=== PATIENT | female | born 1930 | race Caucasian/White ===

== ENCOUNTER 2016-08-23 12:47 | Emergency (ER) | payer OTHER ==
[2016-08-23 13:07] VITALS: TEMP 98.2; BMI 25.4
[2016-08-23] MEDS ORDERED: OXYCODONE/APAP 5/325MG COMBO TABLET PO ONE ×2 (13:45→18:47)
[2016-08-23] MEDS ORDERED: OXYCODONE/APAP 5/325MG COMBO TABLET ONE ×2 (13:58→18:47)
[2016-08-23 14:29] LABS: BASOPHIL 0.7 % (0-2.0); EOSINOPHIL 2.8 % (0-4.5); MCH 30.4 pg (25.7-33.7); MEAN CELL VOLUME 92.1 fl (80-96); MEAN PLT VOLUME 8.5 fl (7.5-11.1); NEUTROPHILS 71.6 % (42.8-82.8); PLATELET COUNT 295 K/MM3 (134-434); RDW 13.5 % (11.6-15.6); WHITE BLOOD COUNT 8.4 K/mm3 (4.0-10.0)
[2016-08-23 14:54] LABS: ALBUMIN 3.4 g/dl (3.4-5.0); ALK PHOS 75 U/L (45-117); ANION GAP 8 (8-16); BILIRUBIN,TOTAL 0.6 mg/dL (0.2-1.0); CALCIUM 8.7 mg/dL (8.5-10.1); CO2 27 mmol/L (21-32); CREATININE 0.7 mg/dL (0.55-1.02); GLUCOSE,RANDOM 86 mg/dL (74-106); SGPT/ALT 19 U/L (12-78); TOT PROT 6.3 g/dl (6.4-8.2)
[2016-08-23 14:56] LABS: SGOT/AST 23 U/L (15-37)
--- NOTE | 2016-08-23 15:10 | PDOC ---
*Physical Exam - Vital Signs Last Vital Signs Temp Pulse Resp BP Pulse Ox 98.2 F 85 18 131/73 100 08/23/16 12:54 08/23/16 12:54 08/23/16 12:54 08/23/16 12:54 08/23/16 12:54 Heart Score/ECG Review #1 ECG reviewed & interpreted by me at: 15:10 08/23/16 15:10 Twelve-lead EKG was performed and reviewed by me. There is normal sinus rhythm with a normal rate of 89bpm. The axis is normal. The intervals are normal - pr: 136ms, QRS:76ms, QTc:442ms. There are no ST or T wave abnormalities. ED Treatment Course - LABORATORY CBC & Chemistry Diagram: 08/23/16 13:52 08/23/16 13:52 - ADDITIONAL ORDERS Additional order review: Laboratory Results 08/23/16 08/23/16 13:52 13:52 INR Cancelled Sodium 143 Potassium 4.1 Chloride 108 H Carbon Dioxide 27 Anion Gap 8 BUN 9 Creatinine 0.7 Creat Clearance w eGFR > 60 Random Glucose 86 Calcium 8.7 Total Bilirubin 0.6 AST 23 ALT 19 Alkaline Phosphatase 75 Total Protein 6.3 L Albumin 3.4 08/23/16 13:52 RBC 4.54 MCV 92.1 MCHC 33.0 RDW 13.5 MPV 8.5 Neutrophils % 71.6 Lymphocytes % 17.2 Monocytes % 7.7 Eosinophils % 2.8 Basophils % 0.7 - Medications Given in the ED: ED Medications Discontinued Medications Generic Name Dose Route Start Last Admin Trade Name Freq PRN Reason Stop Dose Admin Oxycodone/Acetaminophen 1 combo 08/23/16 13:45 08/23/16 14:00 Percocet 5/325 - PO 08/23/16 13:46 1 combo ONCE ONE Administration Medical Decision Making - Medical Decision Making 08/23/16 15:10 Pt seen by Midlevel Provider under my direct supervision Pt interviewed and examined Ancillary studies reviewed I agree with plan as outlined by Midlevel Provider *DC/Admit/Observation/Transfer Diagnosis at time of Disposition: Phantom limb pain, Fall - Discharge Dispostion Disposition: HOME Condition at time of disposition: Improved - Prescriptions Prescriptions: Oxycodone HCl/Acetaminophen [Percocet 5-325 mg Tablet] 1 - 2 tab PO Q6H PRN #14 tab MDD 4 PRN Reason: Pain - Referrals Referrals: Ortiz Malin MD [Staff Physician] - Rowdy Don MD [Primary Care Provider] - - Patient Instructions Printed Discharge Instructions: How to Prevent Falls Additional Instructions: Please use Percocet as needed for discomfort. Please follow-up with referred neurologist and follow-up with Dr. Don tomorrow. Return to ED if symptoms worsen.
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
[2016-08-23 17:30] LABS: PH,URINE 7.5 (5.0-8.0); URINE APPEARANCE CLEAR; URINE BILIRUBIN NEGATIVE (NEGATIVE); URINE BLOOD NEGATIVE (NEGATIVE); URINE COLOR LT. YELLOW; URINE GLUCOSE (UA) NEGATIVE (NEGATIVE); URINE KETONE NEGATIVE (NEGATIVE); URINE LEUK ESTERASE NEGATIVE (NEGATIVE); URINE NITRITE NEGATIVE (NEGATIVE); URINE PROTEIN NEGATIVE (NEGATIVE); URINE UROBILINOGEN 0.2 E.U/dl E.U./dl (0.2-1.0)
--- NOTE | 2016-08-23 18:21 | EKG ---
Test Reason : Blood Pressure : / mmHG Vent. Rate : 089 BPM Atrial Rate : 089 BPM P-R Int : 136 ms QRS Dur : 076 ms QT Int : 364 ms P-R-T Axes : 054 010 047 degrees QTc Int : 442 ms NORMAL SINUS RHYTHM POSSIBLE LEFT ATRIAL ENLARGEMENT BORDERLINE ECG WHEN COMPARED WITH ECG OF 27-OCT-2008 17:17, NO SIGNIFICANT CHANGE WAS FOUND Confirmed by KERRI EARL MD ([id number]) on 08/23/2016 6:20:43 PM Referred By: Confirmed By:KERRI EARL MD
[2016-08-23 19:24] VITALS: BP 128/69; PULSE 71
== END 2016-08-23 18:50 | disposition home or self-care (01) ==
LOC: JER 12:47
DX: G54.6 Phantom limb syndrome with pain (principal); G25.81 Restless legs syndrome; Z89.611 Acquired absence of right leg above knee; W18.39XA Other fall on same level, initial encounter; Y93.89 Activity, other specified; Y92.010 Kitchen of single-family (private) house as the place of occurrence of the external cause
CPT/HCPCS: 36415; 70450-TC; 71010-TC; 72125-TC; 80053; 81003; 85025; 93005; 93010; 99282-25

== ENCOUNTER 2017-02-26 11:43 | Inpatient (IN) | payer OTHER ==
--- NOTE | 2017-02-26 11:52 | PDOC ---
History of Present Illness - General Chief Complaint: Irregular Heart Beat Stated Complaint: HYPOTENSIVE Time Seen by Provider: 02/26/17 11:49 Past History - Past Medical History Allergies/Adverse Reactions: Allergies Allergy/AdvReac Type Severity Reaction Status Date / Time No Known Allergies Allergy Verified 02/26/17 11:45 Home Medications: Ambulatory Orders Gabapentin [Neurontin] 300 mg PO TID 08/23/16 Losartan/Hydrochlorothiazide [Losartan-Hctz 50-12.5 mg Tab] 1 each PO DAILY 05/30 Zolpidem Tartrate [Ambien] 10 mg PO DAILY 08/23/16 Hydrocodone/Acetaminophen [Vicodin Es 7.5-300 mg Tablet] 1 each PO DAILY Oxycodone Sr [Oxycontin] 10 mg PO BID 02/26/17 HTN: Yes Other medical history: SEVERE NERVE PAIN S/P RBKA. - Psycho/Social/Smoking Cessation Hx Anxiety: No Suicidal Ideation: No Smoking History: Never smoked Have you smoked in the past 12 months: No Hx Alcohol Use: No Drug/Substance Use Hx: No Substance Use Type: None *Physical Exam - Vital Signs Last Vital Signs Temp Pulse Resp BP Pulse Ox 98.3 F 132 H 20 121/54 96 02/26/17 11:44 02/26/17 11:44 02/26/17 11:44 02/26/17 11:44 02/26/17 11:44 ED Treatment Course - LABORATORY CBC & Chemistry Diagram: 02/26/17 12:20 02/26/17 12:20 *DC/Admit/Observation/Transfer Diagnosis at time of Disposition: Pneumonia Qualifiers: Pneumonia type: due to unspecified organism Laterality: right Lung location: upper lobe of lung Qualified Code(s): J18.1 - Lobar pneumonia, unspecified organism - Discharge Dispostion Condition at time of disposition: Unchanged/Unknown Admit: Yes - Referrals Referrals: Rowdy Don MD [Primary Care Provider] - - Attestations Physician Attestion: 02/26/17 13:59 I, Dr. Hiren Avalso, attest that this document has been prepared under my direction and personally reviewed by me in its entirety. I further attest, that it accurately reflects all work, treatment, procedures and medical decision -making performed by me.
--- NOTE | 2017-02-26 11:54 | PDOC ---
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 Daughter states the patient was found in bed this morning with dried blood on the right side of her nose and cheek and a mild amount of dark, partially dried blood on the pillow. There were no signs of active bleeding and the patient was unaware that she was bleeding. Patient denies any history of bleeding diathesis, denies taking blood thiners or anti-platelet medications, denies any trauma and has been taking her blood pressure medication as prescribed. The patient just recently started taking amitriptyline for her neuropathic pain, no other recent changes to medication. Patient states that she had been unable to get out of bed in the morning because of the pain in her left hip. Patient is ambulatory at baseline, with a prosthesis, but has been having more difficulty getting out of bed due to hip pain which resolves after 30 minutes of ambulating. Patient denied fever but endorsed a mild cough for the last week. When patient presented she was afebrile, AAOx4 but tachycardic and hypotensive on the monitor and would desaturate to 87% on room air. PCP: Rowdy Don Past History - Past Medical History Allergies/Adverse Reactions: Allergies Allergy/AdvReac Type Severity Reaction Status Date / Time No Known Allergies Allergy Verified 02/26/17 11:45 Home Medications: Ambulatory Orders Gabapentin [Neurontin] 300 mg PO TID PRN 08/23/16 Losartan/Hydrochlorothiazide [Losartan-Hctz 50-12.5 mg Tab] 1 each PO DAILY 05/30 Zolpidem Tartrate [Ambien] 10 mg PO HS 08/23/16 Hydrocodone/Acetaminophen [Vicodin Es 7.5-300 mg Tablet] 1 each PO HS PRN Oxycodone Sr [Oxycontin] 10 mg PO BID PRN 02/26/17 HTN: Yes Other medical history: SEVERE NERVE PAIN S/P RBKA. - Psycho/Social/Smoking Cessation Hx Anxiety: No Suicidal Ideation: No Smoking History: Never smoked Have you smoked in the past 12 months: No Hx Alcohol Use: No Drug/Substance Use Hx: No Substance Use Type: None Review of Systems - Review of Systems Able to Perform ROS?: Yes Is the patient limited Uzbek proficient: No Constitutional: No: Chills, Fever HEENTM: Yes: Nose Bleeding, Hearing Loss (chronic) Respiratory: Yes: Cough. No: Shortness of Breath, Productive cough Cardiac (ROS): No: Chest Pain, Palpitations ABD/GI: No: Blood Streaked Bowels, Diarrhea, Nausea, Rectal Bleeding, Vomiting, Tarry Stools : No: Dysuria, Hematuria Musculoskeletal: Yes: Other (left hip pain for several months) Integumentary: No: Bruising, Rash Neurological: Yes: Other (Increasing forgetfulness). No: Headache, Dizziness *Physical Exam - Vital Signs Last Vital Signs Temp Pulse Resp BP Pulse Ox 98.3 F 132 H 20 121/54 96 02/26/17 11:44 02/26/17 11:44 02/26/17 11:44 02/26/17 11:44 02/26/17 11:44 02/26/17 12:30 From monitor Patient 92% on 2L NC, desaturated to 87% on RA, 96 on 4L NC P 126, BP 100/58 P 120, BP 93/62 P 120, BP 102/67 P 119, BP 106/60, RR 28 - Physical Exam General Appearance: Yes: Nourished, Appropriately Dressed. No: Apparent Distress HEENT: positive: EOMI, ODILON, TMs Normal (no signs of blood), Pharynx Normal, Hearing Decreased, Other (dried blood to the external right naris; no active bleed, normal pink turbinates, no signs of blood or trauma inside the nostril) Neck: positive: Trachea midline, Supple. negative: Tender, Lymphadenopathy (R) , Lymphadenopathy (L) Respiratory/Chest: positive: Normal Breath Sounds, Crackles (Diffusely throughout right lung). negative: Chest Tender, Respiratory Distress Cardiovascular: positive: Regular Rhythm, Regular Rate. negative: Murmur Vascular Pulses: Doralis-Pedis (L): 3+ Gastrointestinal/Abdominal: positive: Normal Bowel Sounds, Flat, Soft. negative : Tender Musculoskeletal: positive: Other (right BKA, well healed, mild tenderness to left hip on palpation). negative: CVA Tenderness Extremity: positive: Normal Capillary Refill (2s). negative: Calf Tenderness Integumentary: positive: Normal Color, Dry, Warm ED Treatment Course - LABORATORY CBC & Chemistry Diagram: 02/27/17 06:40 02/27/17 06:40 - RADIOLOGY Radiograph Interpretation: New right infiltrate, prominent mediastinum, minimal left base changes. Medical Decision Making - Medical Decision Making Patient is an otherwise healthy 86 year old female with HTN and chronic pain who presents with 1x mild self limiting epistaxis with no active bleeding but with reduced ambulation, tachycardia, hypotension, decreased saturation and crackles on right lung. Patient is awake and oriented, afebrile and with no shortness of breath but with 2/4 SIRS criteria and suspicion for infection in the right lung. Ddx, PNA, SIRS, PE, O2, Fluids and workup for sepis: Std. Labs, Lactate, CXR, ABG Cardiac workup: ECG, Troponin Hematology workup: INR/PTT 02/26/17 13:01 Lab reported lactate of 3.0 Repeat in 3 hours 02/26/17 13:03 CMP Sodium 142 mmol/L (136-145) 02/26/17 12:20 Potassium 3.1 mmol/L (3.5-5.1) L D 02/26/17 12:20 Chloride 108 mmol/L (98-107) H 02/26/17 12:20 Carbon Dioxide 23 mmol/L (21-32) 02/26/17 12:20 Anion Gap 11 (8-16) 02/26/17 12:20 BUN 26 mg/dL (7-18) H D 02/26/17 12:20 Creatinine 1.1 mg/dL (0.55-1.02) H D 02/26/17 12:20 Creat Clearance w eGFR 46.88 (>60) 02/26/17 12:20 Random Glucose 180 mg/dL (74-106) H D 02/26/17 12:20 Lactic Acid 3.0 mmol/L (0.4-2.0) H* 02/26/17 12:24 Calcium 7.9 mg/dL (8.5-10.1) L 02/26/17 12:20 Total Bilirubin 0.5 mg/dL (0.2-1.0) 02/26/17 12:20 AST 27 U/L (15-37) 02/26/17 12:20 ALT 15 U/L (12-78) D 02/26/17 12:20 Alkaline Phosphatase 73 U/L (45-117) 02/26/17 12:20 Creatine Kinase 379 IU/L (26-192) H 02/26/17 12:20 Troponin I 0.02 ng/ml (0.00-0.05) 02/26/17 12:20 Total Protein 5.7 g/dl (6.4-8.2) L 02/26/17 12:20 Albumin 3.0 g/dl (3.4-5.0) L 02/26/17 12:20 Troponin wnl INR/PTT are not prolonged and non concerning CBC wnl and non concerning for anemia Hypokalemic (3.1) plan to replete before discharge Elevated BUN/CR consistent with pre-renal, watch for improvement with fluids elevation in CK (aprox 1.5x upper end of normal for white female) not overly concerning at this time. 02/26/17 13:34 ABG Results ABG pH 7.41 (7.35-7.45) 02/26/17 13:00 ABG pCO2 at Pt Temp 34.8 mmHg (35-45) L 02/26/17 13:00 ABG pO2 at Pt Temp 66.5 mmHg (68-100) L 02/26/17 13:00 ABG HCO3 21.6 meq/L (22-26) L 02/26/17 13:00 ABG O2 Sat (Measured) 94.2 % (90-98.9) 02/26/17 13:00 ABG O2 Content 15.8 % vol (15-22) 02/26/17 13:00 ABG Base Excess -1.9 meq/l (-2-2) 02/26/17 13:00 Low paO2, pCO2<35 consistent with hyperventilation pH wnl 02/26/17 13:38 CXR shows new right infiltrate consistent with a right lobe pneumonia. Started on Rocephin and azithromycin for community acquired PNA 02/26/17 14:09 Dr. Avalos spoke with Dr. Guidry on behalf of Dr. Rowdy Don who accepted the patient for admission. The admission order was entered by Dr. Avalos. *DC/Admit/Observation/Transfer Diagnosis at time of Disposition: Pneumonia Qualifiers: Pneumonia type: due to unspecified organism Laterality: right Lung location: upper lobe of lung Qualified Code(s): J18.1 - Lobar pneumonia, unspecified organism - Discharge Dispostion Condition at time of disposition: Unchanged/Unknown - Referrals
[2017-02-26 12:33] LABS: MCH 30.4 pg (25.7-33.7); MCHC 33.4 g/dl (32.0-36.0); MEAN CELL VOLUME 91.1 fl (80-96); MEAN PLT VOLUME 8.8 fl (7.5-11.1); PLATELET COUNT 219 K/MM3 (134-434); RDW 13.4 % (11.6-15.6)
[2017-02-26 12:45] LABS: INR 0.99 (0.82-1.09); PROTHROMBIN TIME (PATIENT) 10.9 SEC (9.98-11.88)
[2017-02-26 12:47] LABS: ACTIVATED PTT 22.3 SECONDS (26.9-34.4)
[2017-02-26 12:52] LABS: ANION GAP 11 (8-16); CALCIUM 7.9 mg/dL (8.5-10.1); CO2 23 mmol/L (21-32); CREATININE 1.1 mg/dL (0.55-1.02); GLUCOSE,RANDOM 180 mg/dL (74-106); SGPT/ALT 15 U/L (12-78)
[2017-02-26 12:53] LABS: BILIRUBIN,TOTAL 0.5 mg/dL (0.2-1.0); SGOT/AST 27 U/L (15-37); TOT PROT 5.7 g/dl (6.4-8.2)
[2017-02-26 12:56] LABS: ALK PHOS 73 U/L (45-117); TROPONIN I 0.02 ng/ml (0.00-0.05)
[2017-02-26 13:08] LABS: ALLENS TEST POSITIVE; ART PUNCT SITE RIGHT RADIAL; ARTERIAL BLD GAS O2 SATURATION 94.2 % (90-98.9); ARTERIAL BLOOD GAS BASE EXCESS -1.9 meq/l (-2-2); ARTERIAL BLOOD GAS HCO3 21.6 meq/L (22-26); ARTERIAL BLOOD GAS pH 7.41 (7.35-7.45); LPM/O2% 5LPMNASAL; PT. ON O2? YES
[2017-02-26 13:10] LABS: ARTERIAL BLOOD GAS PO2 66.5 mmHg (68-100)
[2017-02-26 13:17] LABS: METAMYELOCYTE 7 % (0-2)
[2017-02-26] MEDS ORDERED: SODIUM CHLORIDE 1,000 ML IV SCH (13:45)
[2017-02-26] MEDS ORDERED: CEFTRIAXONE 1 GM in DEXTROSE 5%-WATER - 50 ML IVPB ONE (14:15)
[2017-02-26] MEDS ORDERED: AZITHROMYCIN IVPB 500 MG in DEXTROSE 5%-WATER - 250 ML IVPB ONE (14:15)
[2017-02-26] MEDS ORDERED: ALBUTEROL SO4 0.083% IH SOL 2.5 MG/3 ML VIAL.NEB. NEB PRN (15:09)
[2017-02-26] MEDS ORDERED: ACETAMINOPHEN 325 MG TABLET (FP) PO PRN (15:09)
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
[2017-02-26] MEDS: SODIUM CHLORIDE 1,000 ML IV SCH ×3 (15:16→18:09)
--- NOTE | 2017-02-26 15:24 | CONSULT ---
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 according to the daughter,she stays very close to her mom and when she called her mom she did not sound too good and when she went to visit her she was having pain in her hip joint which was the main reason She was found in bed this morning with dried blood on the right side of her nose and cheek and a mild amount of dark, partially dried blood on the pillow. patient says that she never had bleeding before and this is the first time that she had a bleed she does not know how it started. Patient states that she had been unable to get out of bed in the morning because of the pain in her left hip. Patient is ambulatory at baseline, with a prosthesis, but has been having more difficulty getting out of bed due to hip pain which resolves after 30 minutes of ambulating. Patient denied fever but endorsed a mild cough for the last week. currently patient looks well and has no complaints daughter is with her - History Source History Provided By: Patient, Family Member Limitations to Obtaining History: No Limitations - Alcohol/Substance Use Hx Alcohol Use: No - Smoking History Smoking history: Never smoked Have you smoked in the past 12 months: No Home Medications - Allergies Allergies/Adverse Reactions: Allergies Allergy/AdvReac Type Severity Reaction Status Date / Time No Known Allergies Allergy Verified 02/26/17 11:45 - Home Medications Home Medications: Ambulatory Orders Gabapentin [Neurontin] 300 mg PO TID PRN 08/23/16 Losartan/Hydrochlorothiazide [Losartan-Hctz 50-12.5 mg Tab] 1 each PO DAILY 05/30 Zolpidem Tartrate [Ambien] 10 mg PO HS 08/23/16 Hydrocodone/Acetaminophen [Vicodin Es 7.5-300 mg Tablet] 1 each PO HS PRN Oxycodone Sr [Oxycontin] 10 mg PO BID PRN 02/26/17 Review of Systems - Review of Systems Constitutional: reports: No Symptoms Eyes: reports: No Symptoms HENT: reports: No Symptoms Neck: reports: No Symptoms Cardiovascular: reports: No Symptoms Respiratory: reports: Cough Gastrointestinal: reports: No Symptoms Genitourinary: reports: No Symptoms Integumentary: reports: No Symptoms Neurological: reports: No Symptoms Endocrine: reports: No Symptoms Hematology/Lymphatic: reports: No Symptoms Psychiatric: reports: No Symptoms Physical Exam Vital Signs: Vital Signs Temperature 98.3 F 02/26/17 11:44 Pulse Rate 114 H 02/26/17 13:18 Respiratory Rate 20 02/26/17 13:18 Blood Pressure 106/60 02/26/17 13:18 O2 Sat by Pulse Oximetry (%) 93 L 02/26/17 13:18 Constitutional: Yes: Well Nourished, No Distress, Calm Eyes: Yes: Conjunctiva Clear HENT: Yes: Other (dried blood noted in the nostril) Neck: Yes: Supple, Trachea Midline Cardiovascular: Yes: Regular Rate and Rhythm Respiratory: Yes: Regular, Poor Air Entry (rt side), Other (crackles present) Gastrointestinal: Yes: Normal Bowel Sounds, Soft Musculoskeletal: Yes: WNL Extremities: Yes: Other (amputation) Neurological: Yes: Alert, Oriented Psychiatric: Yes: Alert, Oriented Imaging - Results Chest X-ray: Report Reviewed, Image Reviewed Assessment/Plan after looking at the history and her picture i have a strong suspicion that she has aspirated patient is stlill doing well got couple of different abx Problem List - Problems (1) Pneumonia Code(s): J18.9 - PNEUMONIA, UNSPECIFIED ORGANISM Qualifiers: Pneumonia type: due to unspecified organism Laterality: right Lung location: upper lobe of lung Qualified Code(s): J18.1 - Lobar pneumonia, unspecified organism (2) Phantom limb pain Code(s): G54.6 - PHANTOM LIMB SYNDROME WITH PAIN (3) Hypertension Code(s): I10 - ESSENTIAL (PRIMARY) HYPERTENSION (4) Acute renal failure (ARF) Code(s): N17.9 - ACUTE KIDNEY FAILURE, UNSPECIFIED (5) Hypokalemia Code(s): E87.6 - HYPOKALEMIA (6) Epistaxis Code(s): R04.0 - EPISTAXIS plan will start patient on zosyn cause of epistaxis need to be determined continue monitoring for fever and wbc close watch on her resp status close watch on wbc as
[2017-02-26 15:27] LABS: URINE APPEARANCE CLEAR; URINE BILIRUBIN NEGATIVE (NEGATIVE); URINE BLOOD NEGATIVE (NEGATIVE); URINE COLOR YELLOW; URINE GLUCOSE (UA) NEGATIVE (NEGATIVE); URINE KETONE NEGATIVE (NEGATIVE); URINE LEUK ESTERASE NEGATIVE (NEGATIVE); URINE NITRITE NEGATIVE (NEGATIVE); URINE UROBILINOGEN NEGATIVE mg/dL (0.2-1.0)
[2017-02-26 15:32] LABS: URINE PROTEIN 1+ (NEGATIVE)
[2017-02-26] MEDS ORDERED: ZOLPIDEM TARTRATE 5 MG TABLET PO PRN (15:35)
[2017-02-26] MEDS ORDERED: PATIENT'S OWN MEDICATION (NON-FORMULARY) (Hydrocodone/Acetaminophen [Vicodin Es 7.5-300 Mg PO PRN (15:35)
[2017-02-26 15:36] LABS: URINE HYALINE CAST 8 /lpf; URINE MUCUS RARE; URINE RBC 27 /hpf (0-3); URINE WBC 5 /hpf (3-5)
[2017-02-26] MEDS ORDERED: POTASSIUM CHLORIDE TABS 20 MEQ TABLET.ER (FP) PO ONE (15:37)
[2017-02-26] MEDS: PIPERACILLIN/TAZOB 3.375 GM 50 ML IVPB SCH ×2 (17:09→17:53)
[2017-02-26 17:53] VITALS: BMI 23.0
[2017-02-26] MEDS: oxyCODONE HCL 5 MG TABLET PO PRN (18:09)
[2017-02-26] MEDS: ACETAMINOPHEN 325 MG TABLET (FP) PO PRN (18:11)
[2017-02-26] MEDS: oxyCODONE HCL 10 MG SUSTAINED ACTING TABLET PO SCH (22:36)
[2017-02-26] MEDS: GABAPENTIN 300 MG CAPSULE (FP) PO SCH (22:39)
[2017-02-26] MEDS: HEPARIN NA (PORCINE) 5,000 UNITS/ML 1ML VIAL SQ SCH (22:39)
[2017-02-27] MEDS: PIPERACILLIN/TAZOB 3.375 GM 50 ML IVPB SCH ×4 (01:46→19:08)
[2017-02-27] MEDS: GABAPENTIN 300 MG CAPSULE (FP) PO SCH ×3 (06:13→22:22)
[2017-02-27] MEDS: ACETAMINOPHEN 325 MG TABLET (FP) PO PRN (06:13)
[2017-02-27] MEDS: oxyCODONE HCL 5 MG TABLET PO PRN (06:14)
[2017-02-27 08:17] LABS: BASOPHIL 0.3 % (0-2.0); MCH 29.9 pg (25.7-33.7); MCHC 32.7 g/dl (32.0-36.0); MEAN CELL VOLUME 91.4 fl (80-96); MEAN PLT VOLUME 8.9 fl (7.5-11.1); NEUTROPHILS 84.9 % (42.8-82.8); PLATELET COUNT 188 K/MM3 (134-434); RDW 13.7 % (11.6-15.6); WHITE BLOOD COUNT 15.1 K/mm3 (4.0-10.0)
[2017-02-27 08:46] LABS: ALBUMIN 2.5 g/dl (3.4-5.0); ANION GAP 10 (8-16); CALCIUM 7.3 mg/dL (8.5-10.1); CO2 24 mmol/L (21-32); CREATININE 0.8 mg/dL (0.55-1.02); GLUCOSE,RANDOM 98 mg/dL (74-106); SGOT/AST 23 U/L (15-37); SGPT/ALT 16 U/L (12-78)
[2017-02-27 08:47] LABS: ALK PHOS 48 U/L (45-117); BILIRUBIN,TOTAL 0.8 mg/dL (0.2-1.0)
[2017-02-27] MEDS ORDERED: AZITHROMYCIN IVPB 250 ML IVPB SCH (10:00)
[2017-02-27] MEDS ORDERED: CEFTRIAXONE 50 ML IVPB SCH (10:00)
[2017-02-27] MEDS: HEPARIN NA (PORCINE) 5,000 UNITS/ML 1ML VIAL SQ SCH ×2 (10:32→22:22)
[2017-02-27] MEDS: PANTOPRAZOLE 40 MG TABLET (FP) PO SCH (10:32)
--- NOTE | 2017-02-27 14:08 | PN ---
Progress Note, Physician History of Present Illness: patient clinically looks better breathing much better wbc has increased but no fevers - Current Medication List Current Medications: Active Medications Acetaminophen (Tylenol -) 650 mg PO Q6H PRN PRN Reason: FEVER OR PAIN Acetaminophen (Tylenol -) 325 mg PO Q8H PRN PRN Reason: PAIN Last Admin: 02/27/17 06:13 Dose: 325 mg Albuterol Sulfate (Ventolin 0.083% Nebulizer Soln -) 1 amp NEB Q6H PRN PRN Reason: SHORT OF BREATH/WHEEZING Gabapentin (Neurontin -) 300 mg PO TID [facility] Last Admin: 02/27/17 06:13 Dose: 300 mg Heparin Sodium (Porcine) (Heparin -) 5,000 unit SQ BID [facility] Last Admin: 02/27/17 10:32 Dose: 5,000 unit Piperacillin Sod/Tazobactam Sod (Zosyn 3.375gm Ivpb (Pre-Docked)) 50 mls @ 100 mls/hr IVPB Q8H-IV [facility] PRN Reason: Protocol Last Admin: 02/27/17 10:32 Dose: 100 mls/hr Sodium Chloride (Normal Saline -) 1,000 mls @ 75 mls/hr IV ASDIR [facility] Last Admin: 02/26/17 18:09 Dose: 75 mls/hr Oxycodone HCl (Oxycontin -) 10 mg PO HS [facility] Last Admin: 02/26/17 22:36 Dose: Not Given Oxycodone HCl (Roxicodone -) 5 mg PO Q8H PRN PRN Reason: PAIN Last Admin: 02/27/17 06:14 Dose: 5 mg Pantoprazole Sodium (Protonix -) 40 mg PO DAILY [facility] Last Admin: 02/27/17 10:32 Dose: 40 mg Zolpidem Tartrate (Ambien -) 5 mg PO DAILY PRN PRN Reason: INSOMNIA - Objective Vital Signs: Vital Signs Temperature 99.5 F 02/27/17 10:00 Pulse Rate 108 H 02/27/17 10:00 Respiratory Rate 20 02/27/17 10:00 Blood Pressure 109/73 02/27/17 10:00 O2 Sat by Pulse Oximetry (%) 96 02/26/17 17:00 Constitutional: Yes: No Distress, Calm Cardiovascular: Yes: Regular Rate and Rhythm Respiratory: Yes: Regular, Poor Air Entry (rt side) Gastrointestinal: Yes: Normal Bowel Sounds, Soft Musculoskeletal: Yes: WNL Extremities: Yes: Other Neurological: Yes: Alert, Oriented Psychiatric: Yes: Alert, Oriented Labs: CBC, BMP 02/27/17 06:40 02/27/17 06:40 INR, PTT INR 0.99 (0.82-1.09) 02/26/17 12:20 Assessment/Plan Problem List - Problems (1) Pneumonia Code(s): J18.9 - PNEUMONIA, UNSPECIFIED ORGANISM Qualifiers: Pneumonia type: due to unspecified organism Laterality: right Lung location: upper lobe of lung Qualified Code(s): J18.1 - Lobar pneumonia, unspecified organism (2) Phantom limb pain Code(s): G54.6 - PHANTOM LIMB SYNDROME WITH PAIN (3) Hypertension Code(s): I10 - ESSENTIAL (PRIMARY) HYPERTENSION (4) Acute renal failure (ARF) Code(s): N17.9 - ACUTE KIDNEY FAILURE, UNSPECIFIED (5) Hypokalemia Code(s): E87.6 - HYPOKALEMIA (6) Epistaxis Code(s): R04.0 - EPISTAXIS plan continue abx incentive oseas
--- NOTE | 2017-02-27 14:28 | PN ---
Progress Note (short form) - Note Progress Note: PULMONARY CONSULTATION DICTATED 02/27/17 IMP ACUTE HYPOXEMIC RESPIRATORY FAILURE R SIDED PNEUMONIA ? EPISTAXIS HTN ACUTE KIDNEY INJURY PLAN IV ANTIBIOTICS PER ID INHALED BRONCHODILATORS NASAL O2 IVF MONITOR LYTES F/U CHEST X-RAY SPUTUM C+S DR MARTINS Problem List - Problems (1) Epistaxis Code(s): R04.0 - EPISTAXIS (2) Hypertension Code(s): I10 - ESSENTIAL (PRIMARY) HYPERTENSION (3) Hypokalemia Code(s): E87.6 - HYPOKALEMIA (4) Pneumonia Code(s): J18.9 - PNEUMONIA, UNSPECIFIED ORGANISM Qualifiers: Pneumonia type: due to unspecified organism Laterality: right Lung location: upper lobe of lung Qualified Code(s): J18.1 - Lobar pneumonia, unspecified organism (5) Acute kidney injury Code(s): N17.9 - ACUTE KIDNEY FAILURE, UNSPECIFIED (6) Acute hypoxemic respiratory failure Code(s): J96.01 - ACUTE RESPIRATORY FAILURE WITH HYPOXIA
[2017-02-27] MEDS ORDERED: POTASSIUM CHLORIDE TABS 20 MEQ TABLET.ER (FP) PO ONE ×2 (16:34→19:00)
--- NOTE | 2017-02-27 16:34 | PN ---
Progress Note, Physician Chief Complaint: Today Ms King says she is feeling better. Not short of breath, not coughing. No chest pain or nausea/vomiting. - Current Medication List Current Medications: Active Medications Acetaminophen (Tylenol -) 650 mg PO Q6H PRN PRN Reason: FEVER OR PAIN Acetaminophen (Tylenol -) 325 mg PO Q8H PRN PRN Reason: PAIN Last Admin: 02/27/17 06:13 Dose: 325 mg Albuterol Sulfate (Ventolin 0.083% Nebulizer Soln -) 1 amp NEB Q6H PRN PRN Reason: SHORT OF BREATH/WHEEZING Gabapentin (Neurontin -) 300 mg PO TID [facility] Last Admin: 02/27/17 15:33 Dose: 300 mg Heparin Sodium (Porcine) (Heparin -) 5,000 unit SQ BID [facility] Last Admin: 02/27/17 10:32 Dose: 5,000 unit Piperacillin Sod/Tazobactam Sod (Zosyn 3.375gm Ivpb (Pre-Docked)) 50 mls @ 100 mls/hr IVPB Q8H-IV [facility] PRN Reason: Protocol Last Admin: 02/27/17 10:32 Dose: 100 mls/hr Sodium Chloride (Normal Saline -) 1,000 mls @ 75 mls/hr IV ASDIR [facility] Last Admin: 02/26/17 18:09 Dose: 75 mls/hr Oxycodone HCl (Oxycontin -) 10 mg PO HS [facility] Last Admin: 02/26/17 22:36 Dose: Not Given Oxycodone HCl (Roxicodone -) 5 mg PO Q8H PRN PRN Reason: PAIN Last Admin: 02/27/17 06:14 Dose: 5 mg Pantoprazole Sodium (Protonix -) 40 mg PO DAILY [facility] Last Admin: 02/27/17 10:32 Dose: 40 mg Zolpidem Tartrate (Ambien -) 5 mg PO DAILY PRN PRN Reason: INSOMNIA - Objective Vital Signs: Vital Signs Temperature 99.3 F 02/27/17 14:35 Pulse Rate 92 H 02/27/17 14:35 Respiratory Rate 20 02/27/17 14:35 Blood Pressure 100/58 02/27/17 14:35 O2 Sat by Pulse Oximetry (%) 96 02/27/17 14:50 Constitutional: Yes: Well Nourished, No Distress, Calm Cardiovascular: Yes: Regular Rate and Rhythm. No: Gallop, Murmur, Rub Respiratory: Yes: Regular, Rhonchi. No: CTA Bilaterally, Rales, Wheezes Gastrointestinal: Yes: Normal Bowel Sounds, Soft. No: Distention, Tenderness Extremities: Yes: WNL Edema: No Labs: CBC, BMP 02/27/17 06:40 02/27/17 06:40 INR, PTT INR 0.99 (0.82-1.09) 02/26/17 12:20 Assessment/Plan (1) Pneumonia Assessment/Plan: -appreciate ID assistance -suspect aspiration -sepsis present on admission now resolved -continue zosyn Code(s): J18.9 - PNEUMONIA, UNSPECIFIED ORGANISM Qualifiers: Pneumonia type: due to unspecified organism Laterality: right Lung location: upper lobe of lung Qualified Code(s): J18.1 - Lobar pneumonia, unspecified organism (2) Phantom limb pain Assessment/Plan: -continue hydrocodone and oxycodone -daughter says walking helps the pain -worse at night when not ambulating Code(s): G54.6 - PHANTOM LIMB SYNDROME WITH PAIN (3) Hypertension Assessment/Plan: -normotensive -not on antihypertensives currently Code(s): I10 - ESSENTIAL (PRIMARY) HYPERTENSION (4) Acute renal failure (ARF) Assessment/Plan: -continue hydration Code(s): N17.9 - ACUTE KIDNEY FAILURE, UNSPECIFIED (5) Hypokalemia Assessment/Plan: -replace today -recheck in am Code(s): E87.6 - HYPOKALEMIA (6) Epistaxis Assessment/Plan: -resolved Code(s): R04.0 - EPISTAXIS
[2017-02-27] MEDS: oxyCODONE HCL 10 MG SUSTAINED ACTING TABLET PO SCH (22:22)
[2017-02-28] MEDS: oxyCODONE HCL 5 MG TABLET PO PRN ×2 (01:54→12:58)
[2017-02-28] MEDS: ACETAMINOPHEN 325 MG TABLET (FP) PO PRN (01:55)
[2017-02-28] MEDS: PIPERACILLIN/TAZOB 3.375 GM 50 ML IVPB SCH ×3 (01:56→17:48)
[2017-02-28] MEDS: SODIUM CHLORIDE 1,000 ML IV SCH ×2 (01:56→12:58)
[2017-02-28] MEDS: GABAPENTIN 300 MG CAPSULE (FP) PO SCH ×3 (06:03→21:23)
[2017-02-28 07:07] LABS: BASOPHIL 0.1 % (0-2.0); EOSINOPHIL 2.5 % (0-4.5); MCH 29.8 pg (25.7-33.7); MCHC 32.4 g/dl (32.0-36.0); MEAN CELL VOLUME 92.1 fl (80-96); MEAN PLT VOLUME 8.9 fl (7.5-11.1); PLATELET COUNT 181 K/MM3 (134-434); RDW 13.7 % (11.6-15.6); WHITE BLOOD COUNT 12.4 K/mm3 (4.0-10.0)
[2017-02-28 07:32] LABS: ANION GAP 7 (8-16); CALCIUM 7.6 mg/dL (8.5-10.1); CO2 25 mmol/L (21-32); CREATININE 0.8 mg/dL (0.55-1.02); GLUCOSE,RANDOM 87 mg/dL (74-106); MAGNESIUM 2.3 mg/dL (1.8-2.4); PHOSPHOROUS 2.6 mg/dL (2.5-4.9)
[2017-02-28] MEDS ORDERED: PT OWN MED DRAWER 7, Y5N ONE (08:55)
[2017-02-28] MEDS: HEPARIN NA (PORCINE) 5,000 UNITS/ML 1ML VIAL SQ SCH ×2 (09:06→21:23)
[2017-02-28] MEDS: PANTOPRAZOLE 40 MG TABLET (FP) PO SCH (09:06)
--- NOTE | 2017-02-28 12:13 | PN ---
Progress Note, Physician History of Present Illness: PULMONARY ALERT,NAD,-SOB,OCC COUGH - Current Medication List Current Medications: Active Medications Acetaminophen (Tylenol -) 650 mg PO Q6H PRN PRN Reason: FEVER OR PAIN Acetaminophen (Tylenol -) 325 mg PO Q8H PRN PRN Reason: PAIN Last Admin: 02/28/17 01:55 Dose: 325 mg Albuterol Sulfate (Ventolin 0.083% Nebulizer Soln -) 1 amp NEB Q6H PRN PRN Reason: SHORT OF BREATH/WHEEZING Gabapentin (Neurontin -) 300 mg PO TID [facility] Last Admin: 02/28/17 06:03 Dose: 300 mg Heparin Sodium (Porcine) (Heparin -) 5,000 unit SQ BID [facility] Last Admin: 02/28/17 09:06 Dose: 5,000 unit Piperacillin Sod/Tazobactam Sod (Zosyn 3.375gm Ivpb (Pre-Docked)) 50 mls @ 100 mls/hr IVPB Q8H-IV [facility] PRN Reason: Protocol Last Admin: 02/28/17 09:06 Dose: 100 mls/hr Sodium Chloride (Normal Saline -) 1,000 mls @ 75 mls/hr IV ASDIR [facility] Last Admin: 02/28/17 01:56 Dose: 75 mls/hr Ibuprofen (Advil -) 200 mg PO Q4H PRN PRN Reason: PAIN Oxycodone HCl (Oxycontin -) 10 mg PO HS [facility] Last Admin: 02/27/17 22:22 Dose: 10 mg Oxycodone HCl (Roxicodone -) 5 mg PO Q8H PRN PRN Reason: PAIN Last Admin: 02/28/17 01:54 Dose: 5 mg Pantoprazole Sodium (Protonix -) 40 mg PO DAILY [facility] Last Admin: 02/28/17 09:06 Dose: 40 mg Zolpidem Tartrate (Ambien -) 5 mg PO DAILY PRN PRN Reason: INSOMNIA - Objective Vital Signs: Vital Signs Temperature 98.6 F 02/28/17 06:00 Pulse Rate 81 02/28/17 06:00 Respiratory Rate 18 02/28/17 06:00 Blood Pressure 103/60 02/28/17 06:00 O2 Sat by Pulse Oximetry (%) 95 02/27/17 21:00 Constitutional: Yes: Well Nourished, Calm Eyes: Yes: WNL HENT: Yes: Nasal Congestion Neck: Yes: WNL Cardiovascular: Yes: Regular Rate and Rhythm, S1, S2 Respiratory: Yes: Rales (CRACKLES ON R) Gastrointestinal: Yes: Normal Bowel Sounds, Soft Extremities: Yes: Amputation (R BKA) Edema: No Labs: CBC, BMP 02/28/17 06:05 02/28/17 06:05 INR, PTT INR 0.99 (0.82-1.09) 02/26/17 12:20 - ....Imaging Chest X-ray: Report Reviewed, Image Reviewed (IMPROVING R SIDED INFILTRATE) Problem List - Problems (1) Epistaxis Code(s): R04.0 - EPISTAXIS (2) Hypertension Code(s): I10 - ESSENTIAL (PRIMARY) HYPERTENSION (3) Hypokalemia Code(s): E87.6 - HYPOKALEMIA (4) Pneumonia Code(s): J18.9 - PNEUMONIA, UNSPECIFIED ORGANISM Qualifiers: Pneumonia type: due to unspecified organism Laterality: right Lung location: upper lobe of lung Qualified Code(s): J18.1 - Lobar pneumonia, unspecified organism (5) Acute kidney injury Code(s): N17.9 - ACUTE KIDNEY FAILURE, UNSPECIFIED (6) Acute hypoxemic respiratory failure Code(s): J96.01 - ACUTE RESPIRATORY FAILURE WITH HYPOXIA Assessment/Plan IMP ACUTE HYPOXEMIC RESPIRATORY FAILURE IMPROVING R SIDED PNEUMONIA ? EPISTAXIS HTN ACUTE KIDNEY INJURY PLAN IV ANTIBIOTICS PER ID INHALED BRONCHODILATORS NASAL O2 IVF MONITOR LYTES F/U CHEST X-RAY SPUTUM C+S DR MARTINS Problem List - Problems (1) Epistaxis Code(s): R04.0 - EPISTAXIS (2) Hypertension Code(s): I10 - ESSENTIAL (PRIMARY) HYPERTENSION (3) Hypokalemia Code(s): E87.6 - HYPOKALEMIA (4) Pneumonia Code(s): J18.9 - PNEUMONIA, UNSPECIFIED ORGANISM Qualifiers: Pneumonia type: due to unspecified organism Laterality: right Lung location: upper lobe of lung Qualified Code(s): J18.1 - Lobar pneumonia, unspecified organism (5) Acute kidney injury Code(s): N17.9 - ACUTE KIDNEY FAILURE, UNSPECIFIED (6) Acute hypoxemic respiratory failure Code(s): J96.01 - ACUTE RESPIRATORY FAILURE WITH HYPOXIA
--- NOTE | 2017-02-28 12:39 | CONS ---
DATE OF CONSULTATION: 02/27/2017 REFERRING PHYSICIAN: Francisco Guidry MD The patient is an 86-year-old white female with a past medical history of hypertension, history of right BKA greater than 30 years ago secondary to trauma, with chronic neurogenic pain, history of smoking many, many years ago, a few cigarettes a month, admitted to [facility] with complaint of left hip pain and epistaxis. states she found when she went into the mother's room she found dry blood on the right side of the nose and cheek and small amount of blood noted on the pillow. There was no coughing. There was no hemoptysis. There were no fevers or chills. Patient was unaware she was bleeding, and there is no previous history of epistaxis. Patient is currently not on any medication such as aspirin, nonsteroidals, and/or anticoagulants. There is no history of recent facial trauma. Patient apparently recently started taking amitriptyline for neuropathic pain, otherwise there is no change in medication. Patient states on the morning of admission she was unable to get out of the bed secondary to pain in the left hip. There is no recent fall. Patient was noted on admission to the ER to be tachycardic and hypotensive. She was also noted to have an O2 saturation of 87% on room air. PAST MEDICAL HISTORY: Again includes hypertension and history of right BKA greater than 30 years ago secondary to trauma, and chronic neurogenic pain. MEDICATIONS PRIOR TO ADMISSION: Include Tylenol, piperacillin, heparin, Neurontin, Ambien, albuterol, normal saline, OxyContin, Roxicodone, and Protonix. REVIEW OF SYSTEMS: No orthopnea, no PND. No chest pain, no palpitations. No cough, no hemoptysis. PHYSICAL EXAMINATION: General: The patient is an elderly white female, thin, well nourished, well developed, awake, alert, in no acute distress. Vital Signs: She is currently afebrile. T-max is 99.8. HEENT: Exam is normocephalic, atraumatic. Neck: Supple. Heart: Regular S1, S2. Chest: Crackles on the right throughout. Abdomen: Soft. Bowel sounds are positive. Extremities: No cyanosis or edema. LABORATORY: WBC is 15.1, on admission was 8. Hemoglobin is 13.0, hematocrit 39. Currently the WBC is 15, hemoglobin 10.7, hematocrit 32.7. Blood gas: pH 7.41, PCO2 of 34, PO2 of 65, bicarbonate of 21, a saturation of 94.2. That was on 5 L nasal cannula. Potassium 3.4, BUN 24, creatinine 0.8. Lactic acid level on admission 3, currently 2.1. Chest x-ray reveals a right-sided infiltrate. IMPRESSION: 1. Acute hypoxemic respiratory failure secondary to pneumonia. 2. Likely right lung pneumonia, possible aspiration versus community acquired. 3. Likely epistaxis. 4. Anemia. 5. Hypertension. PLAN: Continue broad-spectrum antibiotics as per Infectious Disease, supplemental O2, inhaled bronchodilators, obtain followup chest x-ray. Monitor hemoglobin and hematocrit. MICHELLE MARTINS M.D. [id number]
--- NOTE | 2017-02-28 14:08 | PN ---
Progress Note, Physician Chief Complaint: Today Ms King says she is doing better. Having cough and sore throat but breathing is improved. No cp or n/v. Daughter concerned about left hip. Ms King says it hurts in the morning when she wakes up but improves with movement. - Current Medication List Current Medications: Active Medications Acetaminophen (Tylenol -) 650 mg PO Q6H PRN PRN Reason: FEVER OR PAIN Acetaminophen (Tylenol -) 325 mg PO Q8H PRN PRN Reason: PAIN Last Admin: 02/28/17 01:55 Dose: 325 mg Albuterol Sulfate (Ventolin 0.083% Nebulizer Soln -) 1 amp NEB Q6H PRN PRN Reason: SHORT OF BREATH/WHEEZING Gabapentin (Neurontin -) 300 mg PO TID [facility] Last Admin: 02/28/17 06:03 Dose: 300 mg Heparin Sodium (Porcine) (Heparin -) 5,000 unit SQ BID [facility] Last Admin: 02/28/17 09:06 Dose: 5,000 unit Piperacillin Sod/Tazobactam Sod (Zosyn 3.375gm Ivpb (Pre-Docked)) 50 mls @ 100 mls/hr IVPB Q8H-IV [facility] PRN Reason: Protocol Last Admin: 02/28/17 09:06 Dose: 100 mls/hr Sodium Chloride (Normal Saline -) 1,000 mls @ 75 mls/hr IV ASDIR [facility] Last Admin: 02/28/17 12:58 Dose: 75 mls/hr Ibuprofen (Advil -) 200 mg PO Q4H PRN PRN Reason: PAIN Oxycodone HCl (Oxycontin -) 10 mg PO HS [facility] Last Admin: 02/27/17 22:22 Dose: 10 mg Oxycodone HCl (Roxicodone -) 5 mg PO Q8H PRN PRN Reason: PAIN Last Admin: 02/28/17 12:58 Dose: 5 mg Pantoprazole Sodium (Protonix -) 40 mg PO DAILY [facility] Last Admin: 02/28/17 09:06 Dose: 40 mg Zolpidem Tartrate (Ambien -) 5 mg PO DAILY PRN PRN Reason: INSOMNIA - Objective Vital Signs: Vital Signs Temperature 98.6 F 02/28/17 06:00 Pulse Rate 81 02/28/17 06:00 Respiratory Rate 18 02/28/17 06:00 Blood Pressure 103/60 02/28/17 06:00 O2 Sat by Pulse Oximetry (%) 95 02/27/17 21:00 Constitutional: Yes: Well Nourished, No Distress, Calm Cardiovascular: Yes: Regular Rate and Rhythm. No: Gallop, Murmur, Rub Respiratory: Yes: Regular, On Nasal O2, Rhonchi (bibasilar, R>L). No: Rales, Wheezes Gastrointestinal: Yes: Normal Bowel Sounds, Soft. No: Distention, Tenderness Extremities: Yes: Other (R BKA) Edema: No Labs: CBC, BMP 02/28/17 06:05 02/28/17 06:05 INR, PTT INR 0.99 (0.82-1.09) 02/26/17 12:20 Assessment/Plan (1) Pneumonia Assessment/Plan: -improving -suspect aspiration with chemical pneumonitis -continue zosyn per ID Code(s): J18.9 - PNEUMONIA, UNSPECIFIED ORGANISM Qualifiers: Pneumonia type: due to unspecified organism Laterality: right Lung location: upper lobe of lung Qualified Code(s): J18.1 - Lobar pneumonia, unspecified organism (2) Phantom limb pain Assessment/Plan: -continue hydrocodone and oxycodone -daughter says walking helps the pain -worse at night when not ambulating Code(s): G54.6 - PHANTOM LIMB SYNDROME WITH PAIN (3) Hypertension Assessment/Plan: -normotensive -not on antihypertensives currently Code(s): I10 - ESSENTIAL (PRIMARY) HYPERTENSION (4) Acute renal failure (ARF) Assessment/Plan: -resolved -stop IVF Code(s): N17.9 - ACUTE KIDNEY FAILURE, UNSPECIFIED (5) Hypokalemia Assessment/Plan: -replaced, normal today Code(s): E87.6 - HYPOKALEMIA (6) Epistaxis Assessment/Plan: -resolved Code(s): R04.0 - EPISTAXIS (7) L hip arthritis -description consistent with arthritis -observed walking in room, not currently having pain -continue physical therapy
--- NOTE | 2017-02-28 15:22 | PN ---
Progress Note, Physician History of Present Illness: continues to improve breathing much better - Current Medication List Current Medications: Active Medications Acetaminophen (Tylenol -) 650 mg PO Q6H PRN PRN Reason: FEVER OR PAIN Acetaminophen (Tylenol -) 325 mg PO Q8H PRN PRN Reason: PAIN Last Admin: 02/28/17 01:55 Dose: 325 mg Albuterol Sulfate (Ventolin 0.083% Nebulizer Soln -) 1 amp NEB Q6H PRN PRN Reason: SHORT OF BREATH/WHEEZING Gabapentin (Neurontin -) 300 mg PO TID [facility] Last Admin: 02/28/17 14:40 Dose: 300 mg Heparin Sodium (Porcine) (Heparin -) 5,000 unit SQ BID [facility] Last Admin: 02/28/17 09:06 Dose: 5,000 unit Piperacillin Sod/Tazobactam Sod (Zosyn 3.375gm Ivpb (Pre-Docked)) 50 mls @ 100 mls/hr IVPB Q8H-IV [facility] PRN Reason: Protocol Last Admin: 02/28/17 09:06 Dose: 100 mls/hr Ibuprofen (Advil -) 200 mg PO Q4H PRN PRN Reason: PAIN Oxycodone HCl (Oxycontin -) 10 mg PO HS [facility] Last Admin: 02/27/17 22:22 Dose: 10 mg Oxycodone HCl (Roxicodone -) 5 mg PO Q8H PRN PRN Reason: PAIN Last Admin: 02/28/17 12:58 Dose: 5 mg Pantoprazole Sodium (Protonix -) 40 mg PO DAILY [facility] Last Admin: 02/28/17 09:06 Dose: 40 mg Zolpidem Tartrate (Ambien -) 5 mg PO DAILY PRN PRN Reason: INSOMNIA - Objective Vital Signs: Vital Signs Temperature 98.6 F 02/28/17 06:00 Pulse Rate 81 02/28/17 06:00 Respiratory Rate 18 02/28/17 06:00 Blood Pressure 103/60 02/28/17 06:00 O2 Sat by Pulse Oximetry (%) 95 02/27/17 21:00 Constitutional: Yes: No Distress, Calm Neck: Yes: Supple Cardiovascular: Yes: Regular Rate and Rhythm, S1, S2 Respiratory: Yes: Regular, CTA Bilaterally Gastrointestinal: Yes: Normal Bowel Sounds, Soft Musculoskeletal: Yes: WNL Extremities: Yes: Other (pain in the rt hip joint) Integumentary: Yes: WNL Neurological: Yes: Alert, Oriented Psychiatric: Yes: Alert Labs: CBC, BMP 02/28/17 06:05 02/28/17 06:05 INR, PTT INR 0.99 (0.82-1.09) 02/26/17 12:20 Assessment/Plan Problem List - Problems (1) Pneumonia Code(s): J18.9 - PNEUMONIA, UNSPECIFIED ORGANISM Qualifiers: Pneumonia type: due to unspecified organism Laterality: right Lung location: upper lobe of lung Qualified Code(s): J18.1 - Lobar pneumonia, unspecified organism (2) Phantom limb pain Code(s): G54.6 - PHANTOM LIMB SYNDROME WITH PAIN (3) Hypertension Code(s): I10 - ESSENTIAL (PRIMARY) HYPERTENSION (4) Acute renal failure (ARF) Code(s): N17.9 - ACUTE KIDNEY FAILURE, UNSPECIFIED (5) Hypokalemia Code(s): E87.6 - HYPOKALEMIA (6) Epistaxis Code(s): R04.0 - EPISTAXIS plan continue abx incentive oseas by hopefully we will be able to deescalate
[2017-02-28] MEDS: oxyCODONE HCL 10 MG SUSTAINED ACTING TABLET PO SCH (21:24)
[2017-03-01] MEDS: PIPERACILLIN/TAZOB 3.375 GM 50 ML IVPB SCH ×3 (02:52→17:00)
[2017-03-01] MEDS: GABAPENTIN 300 MG CAPSULE (FP) PO SCH ×3 (06:19→21:29)
[2017-03-01 07:44] LABS: BASOPHIL 0.2 % (0-2.0); MCH 30.2 pg (25.7-33.7); MCHC 32.9 g/dl (32.0-36.0); MEAN CELL VOLUME 91.9 fl (80-96); MEAN PLT VOLUME 9.3 fl (7.5-11.1); NEUTROPHILS 79.6 % (42.8-82.8); PLATELET COUNT 197 K/MM3 (134-434); RDW 13.7 % (11.6-15.6); WHITE BLOOD COUNT 9.4 K/mm3 (4.0-10.0)
[2017-03-01 08:14] LABS: ANION GAP 8 (8-16); CALCIUM 8.1 mg/dL (8.5-10.1); CO2 23 mmol/L (21-32); GLUCOSE,RANDOM 99 mg/dL (74-106); MAGNESIUM 2.2 mg/dL (1.8-2.4)
[2017-03-01 08:17] LABS: CREATININE 0.8 mg/dL (0.55-1.02); PHOSPHOROUS 2.4 mg/dL (2.5-4.9)
[2017-03-01] MEDS ORDERED: PT OWN MED DRAWER 7, Y5N ONE (10:34)
[2017-03-01] MEDS: HEPARIN NA (PORCINE) 5,000 UNITS/ML 1ML VIAL SQ SCH ×2 (11:00→21:28)
[2017-03-01] MEDS: PANTOPRAZOLE 40 MG TABLET (FP) PO SCH (11:01)
[2017-03-01] MEDS: IBUPROFEN 200 MG TABLET PO PRN (11:01)
--- NOTE | 2017-03-01 14:28 | PN ---
Progress Note, Physician History of Present Illness: PULMONARY ALERT,FEELING BETTER,-RESP DISTRESS. O2 SAT 98% RA - Current Medication List Current Medications: Active Medications Acetaminophen (Tylenol -) 650 mg PO Q6H PRN PRN Reason: FEVER OR PAIN Acetaminophen (Tylenol -) 325 mg PO Q8H PRN PRN Reason: PAIN Last Admin: 02/28/17 01:55 Dose: 325 mg Albuterol Sulfate (Ventolin 0.083% Nebulizer Soln -) 1 amp NEB Q6H PRN PRN Reason: SHORT OF BREATH/WHEEZING Last Admin: 02/28/17 22:18 Dose: 1 amp Gabapentin (Neurontin -) 300 mg PO TID [facility] Last Admin: 03/01/17 06:19 Dose: 300 mg Heparin Sodium (Porcine) (Heparin -) 5,000 unit SQ BID [facility] Last Admin: 03/01/17 11:00 Dose: 5,000 unit Piperacillin Sod/Tazobactam Sod (Zosyn 3.375gm Ivpb (Pre-Docked)) 50 mls @ 100 mls/hr IVPB Q8H-IV NIL[facility] PRN Reason: Protocol Last Admin: 03/01/17 10:57 Dose: 100 mls/hr Ibuprofen (Advil -) 200 mg PO Q4H PRN PRN Reason: PAIN Last Admin: 03/01/17 11:01 Dose: 200 mg Oxycodone HCl (Oxycontin -) 10 mg PO HS [facility] Last Admin: 02/28/17 21:24 Dose: 10 mg Oxycodone HCl (Roxicodone -) 5 mg PO Q8H PRN PRN Reason: PAIN Last Admin: 02/28/17 12:58 Dose: 5 mg Pantoprazole Sodium (Protonix -) 40 mg PO DAILY [facility] Last Admin: 03/01/17 11:01 Dose: 40 mg Zolpidem Tartrate (Ambien -) 5 mg PO DAILY PRN PRN Reason: INSOMNIA - Objective Vital Signs: Vital Signs Temperature 98.9 F 03/01/17 07:00 Pulse Rate 91 H 03/01/17 07:00 Respiratory Rate 18 03/01/17 07:00 Blood Pressure 113/50 03/01/17 07:00 O2 Sat by Pulse Oximetry (%) 95 02/28/17 09:00 Constitutional: Yes: Well Nourished, Calm Eyes: Yes: WNL HENT: Yes: WNL Cardiovascular: Yes: Regular Rate and Rhythm, S1, S2 Respiratory: Yes: Rales (CRACKLES R) Gastrointestinal: Yes: Normal Bowel Sounds, Soft Extremities: Yes: Amputation (R BKA) Labs: CBC, BMP 03/01/17 06:28 03/01/17 06:28 INR, PTT INR 0.99 (0.82-1.09) 02/26/17 12:20 Problem List - Problems (1) Epistaxis Code(s): R04.0 - EPISTAXIS (2) Hypertension Code(s): I10 - ESSENTIAL (PRIMARY) HYPERTENSION (3) Hypokalemia Code(s): E87.6 - HYPOKALEMIA (4) Pneumonia Code(s): J18.9 - PNEUMONIA, UNSPECIFIED ORGANISM Qualifiers: Pneumonia type: due to unspecified organism Laterality: right Lung location: upper lobe of lung Qualified Code(s): J18.1 - Lobar pneumonia, unspecified organism (5) Acute kidney injury Code(s): N17.9 - ACUTE KIDNEY FAILURE, UNSPECIFIED (6) Acute hypoxemic respiratory failure Code(s): J96.01 - ACUTE RESPIRATORY FAILURE WITH HYPOXIA Assessment/Plan IMP ACUTE HYPOXEMIC RESPIRATORY FAILURE IMPROVING R SIDED PNEUMONIA ? EPISTAXIS HTN ACUTE KIDNEY INJURY IMPROVED PLAN IV ANTIBIOTICS PER ID INHALED BRONCHODILATORS NASAL O2 MONITOR LYDIONNE F/U CHEST X-RAY DANN MARTINS Problem List - Problems (1) Epistaxis Code(s): R04.0 - EPISTAXIS (2) Hypertension Code(s): I10 - ESSENTIAL (PRIMARY) HYPERTENSION (3) Hypokalemia Code(s): E87.6 - HYPOKALEMIA (4) Pneumonia Code(s): J18.9 - PNEUMONIA, UNSPECIFIED ORGANISM Qualifiers: Pneumonia type: due to unspecified organism Laterality: right Lung location: upper lobe of lung Qualified Code(s): J18.1 - Lobar pneumonia, unspecified organism (5) Acute kidney injury Code(s): N17.9 - ACUTE KIDNEY FAILURE, UNSPECIFIED (6) Acute hypoxemic respiratory failure Code(s): J96.01 - ACUTE RESPIRATORY FAILURE WITH HYPOXIA
--- NOTE | 2017-03-01 14:56 | EKG ---
Test Reason : Blood Pressure : / mmHG Vent. Rate : 126 BPM Atrial Rate : 126 BPM P-R Int : 144 ms QRS Dur : 086 ms QT Int : 314 ms P-R-T Axes : 048 002 023 degrees QTc Int : 454 ms SINUS TACHYCARDIA POSSIBLE ANTERIOR INFARCT , AGE UNDETERMINED ABNORMAL ECG WHEN COMPARED WITH ECG OF 23-AUG-2016 14:26, NO SIGNIFICANT CHANGE WAS FOUND Confirmed by KIRSTEN COLIN MD ([id number]) on 03/01/2017 2:55:50 PM Referred By: Confirmed By:KIRSTEN COLIN MD
--- NOTE | 2017-03-01 15:57 | PN ---
Progress Note, Physician Chief Complaint: Ms King says she is doing really well today. Says her breathing feels fine and her coughing has almost resolved. Denies chest pain, shortness of breath, nausea/vomiting. - Current Medication List Current Medications: Active Medications Acetaminophen (Tylenol -) 650 mg PO Q6H PRN PRN Reason: FEVER OR PAIN Acetaminophen (Tylenol -) 325 mg PO Q8H PRN PRN Reason: PAIN Last Admin: 02/28/17 01:55 Dose: 325 mg Albuterol Sulfate (Ventolin 0.083% Nebulizer Soln -) 1 amp NEB Q6H PRN PRN Reason: SHORT OF BREATH/WHEEZING Last Admin: 02/28/17 22:18 Dose: 1 amp Gabapentin (Neurontin -) 300 mg PO TID [facility] Last Admin: 03/01/17 06:19 Dose: 300 mg Heparin Sodium (Porcine) (Heparin -) 5,000 unit SQ BID [facility] Last Admin: 03/01/17 11:00 Dose: 5,000 unit Piperacillin Sod/Tazobactam Sod (Zosyn 3.375gm Ivpb (Pre-Docked)) 50 mls @ 100 mls/hr IVPB Q8H-IV NILSA PRN Reason: Protocol Last Admin: 03/01/17 10:57 Dose: 100 mls/hr Ibuprofen (Advil -) 200 mg PO Q4H PRN PRN Reason: PAIN Last Admin: 03/01/17 11:01 Dose: 200 mg Oxycodone HCl (Oxycontin -) 10 mg PO HS [facility] Last Admin: 02/28/17 21:24 Dose: 10 mg Oxycodone HCl (Roxicodone -) 5 mg PO Q8H PRN PRN Reason: PAIN Last Admin: 02/28/17 12:58 Dose: 5 mg Pantoprazole Sodium (Protonix -) 40 mg PO DAILY [facility] Last Admin: 03/01/17 11:01 Dose: 40 mg Zolpidem Tartrate (Ambien -) 5 mg PO DAILY PRN PRN Reason: INSOMNIA - Objective Vital Signs: Vital Signs Temperature 99 F 03/01/17 14:51 Pulse Rate 81 03/01/17 14:51 Respiratory Rate 18 03/01/17 14:51 Blood Pressure 133/78 03/01/17 14:51 O2 Sat by Pulse Oximetry (%) 95 02/28/17 09:00 Constitutional: Yes: Well Nourished, No Distress, Calm Cardiovascular: Yes: Regular Rate and Rhythm. No: Gallop, Murmur, Rub Respiratory: Yes: Regular, Rhonchi (bibasilar, improved). No: Rales, Wheezes Gastrointestinal: Yes: Normal Bowel Sounds, Soft. No: Distention, Tenderness Extremities: Yes: Other (BKA) Edema: No Labs: CBC, BMP 03/01/17 06:28 03/01/17 06:28 INR, PTT INR 0.99 (0.82-1.09) 02/26/17 12:20 Assessment/Plan (1) Pneumonia Assessment/Plan: -much improved -aspiration -continue zosyn per ID Code(s): J18.9 - PNEUMONIA, UNSPECIFIED ORGANISM Qualifiers: Pneumonia type: due to unspecified organism Laterality: right Lung location: upper lobe of lung Qualified Code(s): J18.1 - Lobar pneumonia, unspecified organism (2) Phantom limb pain Assessment/Plan: -continue hydrocodone and oxycodone -controlled Code(s): G54.6 - PHANTOM LIMB SYNDROME WITH PAIN (3) Hypertension Assessment/Plan: -normotensive -not on antihypertensives currently Code(s): I10 - ESSENTIAL (PRIMARY) HYPERTENSION (4) Acute renal failure (ARF) Assessment/Plan: -resolved -stopped IVF Code(s): N17.9 - ACUTE KIDNEY FAILURE, UNSPECIFIED (5) Hypokalemia Assessment/Plan: -replaced, normal today Code(s): E87.6 - HYPOKALEMIA (6) Epistaxis Assessment/Plan: -resolved Code(s): R04.0 - EPISTAXIS (7) L hip arthritis -controlled Dispo -possible discharge in next 24-48 hours pending antibiotics per ID
--- NOTE | 2017-03-01 17:59 | PN ---
Progress Note, Physician History of Present Illness: continues to improve breathing much better pain better - Current Medication List Current Medications: Active Medications Acetaminophen (Tylenol -) 650 mg PO Q6H PRN PRN Reason: FEVER OR PAIN Acetaminophen (Tylenol -) 325 mg PO Q8H PRN PRN Reason: PAIN Last Admin: 02/28/17 01:55 Dose: 325 mg Albuterol Sulfate (Ventolin 0.083% Nebulizer Soln -) 1 amp NEB Q6H PRN PRN Reason: SHORT OF BREATH/WHEEZING Last Admin: 02/28/17 22:18 Dose: 1 amp Gabapentin (Neurontin -) 300 mg PO TID [facility] Last Admin: 03/01/17 14:00 Dose: 300 mg Heparin Sodium (Porcine) (Heparin -) 5,000 unit SQ BID [facility] Last Admin: 03/01/17 11:00 Dose: 5,000 unit Piperacillin Sod/Tazobactam Sod (Zosyn 3.375gm Ivpb (Pre-Docked)) 50 mls @ 100 mls/hr IVPB Q8H-IV NILSA PRN Reason: Protocol Last Admin: 03/01/17 17:00 Dose: 100 mls/hr Ibuprofen (Advil -) 200 mg PO Q4H PRN PRN Reason: PAIN Last Admin: 03/01/17 11:01 Dose: 200 mg Oxycodone HCl (Oxycontin -) 10 mg PO HS [facility] Last Admin: 02/28/17 21:24 Dose: 10 mg Oxycodone HCl (Roxicodone -) 5 mg PO Q8H PRN PRN Reason: PAIN Last Admin: 02/28/17 12:58 Dose: 5 mg Pantoprazole Sodium (Protonix -) 40 mg PO DAILY [facility] Last Admin: 03/01/17 11:01 Dose: 40 mg Zolpidem Tartrate (Ambien -) 5 mg PO DAILY PRN PRN Reason: INSOMNIA - Objective Vital Signs: Vital Signs Temperature 99 F 03/01/17 14:51 Pulse Rate 81 03/01/17 14:51 Respiratory Rate 18 03/01/17 14:51 Blood Pressure 133/78 03/01/17 14:51 O2 Sat by Pulse Oximetry (%) 95 02/28/17 09:00 Constitutional: Yes: No Distress, Calm Cardiovascular: Yes: Regular Rate and Rhythm Respiratory: Yes: Regular, On Nasal O2, Poor Air Entry Gastrointestinal: Yes: Normal Bowel Sounds, Soft Musculoskeletal: Yes: WNL Extremities: Yes: WNL Neurological: Yes: Alert, Oriented Psychiatric: Yes: Alert, Oriented Labs: CBC, BMP 03/01/17 06:28 03/01/17 06:28 INR, PTT INR 0.99 (0.82-1.09) 02/26/17 12:20 Assessment/Plan Problem List - Problems (1) Pneumonia Code(s): J18.9 - PNEUMONIA, UNSPECIFIED ORGANISM Qualifiers: Pneumonia type: due to unspecified organism Laterality: right Lung location: upper lobe of lung Qualified Code(s): J18.1 - Lobar pneumonia, unspecified organism (2) Phantom limb pain Code(s): G54.6 - PHANTOM LIMB SYNDROME WITH PAIN (3) Hypertension Code(s): I10 - ESSENTIAL (PRIMARY) HYPERTENSION (4) Acute renal failure (ARF) Code(s): N17.9 - ACUTE KIDNEY FAILURE, UNSPECIFIED (5) Hypokalemia Code(s): E87.6 - HYPOKALEMIA (6) Epistaxis Code(s): R04.0 - EPISTAXIS plan continue abx incentive oseas tomorrow might switch to oral abx rest as per primary team
[2017-03-01] MEDS: oxyCODONE HCL 10 MG SUSTAINED ACTING TABLET PO SCH (21:27)
[2017-03-02] MEDS: PIPERACILLIN/TAZOB 3.375 GM 50 ML IVPB SCH ×3 (03:00→17:32)
[2017-03-02] MEDS: GABAPENTIN 300 MG CAPSULE (FP) PO SCH ×3 (06:02→21:09)
[2017-03-02 07:25] LABS: BASOPHIL 0.7 % (0-2.0); EOSINOPHIL 7.6 % (0-4.5); MCH 30.5 pg (25.7-33.7); MCHC 33.5 g/dl (32.0-36.0); MEAN CELL VOLUME 91.2 fl (80-96); NEUTROPHILS 56.7 % (42.8-82.8); PLATELET COUNT 213 K/MM3 (134-434); RDW 13.6 % (11.6-15.6)
[2017-03-02 07:44] LABS: ANION GAP 10 (8-16); CALCIUM 8.1 mg/dL (8.5-10.1); CO2 22 mmol/L (21-32); CREATININE 0.7 mg/dL (0.55-1.02); GLUCOSE,RANDOM 86 mg/dL (74-106); MAGNESIUM 2.3 mg/dL (1.8-2.4); PHOSPHOROUS 2.5 mg/dL (2.5-4.9)
[2017-03-02] MEDS ORDERED: PT OWN MED DRAWER 7, Y5N ONE (11:23)
[2017-03-02] MEDS: HEPARIN NA (PORCINE) 5,000 UNITS/ML 1ML VIAL SQ SCH ×2 (11:32→21:08)
[2017-03-02] MEDS: PANTOPRAZOLE 40 MG TABLET (FP) PO SCH (11:32)
[2017-03-02] MEDS: IBUPROFEN 200 MG TABLET PO PRN (11:33)
--- NOTE | 2017-03-02 11:59 | PN ---
Progress Note (short form) - Note Progress Note: PULMONARY Denies shortness of breath, cough or fevers. Wants to go home. Last Vital Signs Temp Pulse Resp BP Pulse Ox 99.3 F 95 H 18 120/61 95 03/02/17 06:00 03/02/17 11:52 03/02/17 06:00 03/02/17 06:00 03/02/17 11:52 Gen: NAD in chair Heart: RRR Lung: right sided rales Abd: soft, nontender Ext: no edema CBC, BMP 03/02/17 06:00 03/02/17 06:00 Active Medications Acetaminophen (Tylenol -) 650 mg PO Q6H PRN PRN Reason: FEVER OR PAIN Acetaminophen (Tylenol -) 325 mg PO Q8H PRN PRN Reason: PAIN Last Admin: 02/28/17 01:55 Dose: 325 mg Albuterol Sulfate (Ventolin 0.083% Nebulizer Soln -) 1 amp NEB Q6H PRN PRN Reason: SHORT OF BREATH/WHEEZING Last Admin: 02/28/17 22:18 Dose: 1 amp Gabapentin (Neurontin -) 300 mg PO TID [facility] Last Admin: 03/02/17 06:02 Dose: 300 mg Heparin Sodium (Porcine) (Heparin -) 5,000 unit SQ BID [facility] Last Admin: 03/02/17 11:32 Dose: 5,000 unit Piperacillin Sod/Tazobactam Sod (Zosyn 3.375gm Ivpb (Pre-Docked)) 50 mls @ 100 mls/hr IVPB Q8H-IV NILSA PRN Reason: Protocol Last Admin: 03/02/17 11:33 Dose: 100 mls/hr Ibuprofen (Advil -) 200 mg PO Q4H PRN PRN Reason: PAIN Last Admin: 03/02/17 11:33 Dose: 200 mg Oxycodone HCl (Oxycontin -) 10 mg PO HS [facility] Last Admin: 03/01/17 21:27 Dose: 10 mg Oxycodone HCl (Roxicodone -) 5 mg PO Q8H PRN PRN Reason: PAIN Last Admin: 02/28/17 12:58 Dose: 5 mg Pantoprazole Sodium (Protonix -) 40 mg PO DAILY [facility] Last Admin: 03/02/17 11:32 Dose: 40 mg Zolpidem Tartrate (Ambien -) 5 mg PO DAILY PRN PRN Reason: INSOMNIA A/P Pneumonia Sepsis HTN Acute Kidney Injury improved - complete antibiotics, can likely change to PO - inhaled bronchodilators as needed - will need outpt f/u of CXR to ensure resolution of infiltrates in 6-8 weeks - DVT prophylaxis
[2017-03-02] MEDS: oxyCODONE HCL 5 MG TABLET PO PRN (14:36)
--- NOTE | 2017-03-02 15:01 | PN ---
Progress Note, Physician History of Present Illness: patient doing much better no complaints breathing better - Current Medication List Current Medications: Active Medications Acetaminophen (Tylenol -) 650 mg PO Q6H PRN PRN Reason: FEVER OR PAIN Last Admin: 03/02/17 14:37 Dose: 650 mg Acetaminophen (Tylenol -) 325 mg PO Q8H PRN PRN Reason: PAIN Last Admin: 02/28/17 01:55 Dose: 325 mg Albuterol Sulfate (Ventolin 0.083% Nebulizer Soln -) 1 amp NEB Q6H PRN PRN Reason: SHORT OF BREATH/WHEEZING Last Admin: 02/28/17 22:18 Dose: 1 amp Gabapentin (Neurontin -) 300 mg PO TID [facility] Last Admin: 03/02/17 14:38 Dose: 300 mg Heparin Sodium (Porcine) (Heparin -) 5,000 unit SQ BID [facility] Last Admin: 03/02/17 11:32 Dose: 5,000 unit Piperacillin Sod/Tazobactam Sod (Zosyn 3.375gm Ivpb (Pre-Docked)) 50 mls @ 100 mls/hr IVPB Q8H-IV NILSA PRN Reason: Protocol Last Admin: 03/02/17 11:33 Dose: 100 mls/hr Ibuprofen (Advil -) 200 mg PO Q4H PRN PRN Reason: PAIN Last Admin: 03/02/17 11:33 Dose: 200 mg Oxycodone HCl (Oxycontin -) 10 mg PO HS [facility] Last Admin: 03/01/17 21:27 Dose: 10 mg Oxycodone HCl (Roxicodone -) 5 mg PO Q8H PRN PRN Reason: PAIN Last Admin: 03/02/17 14:36 Dose: 5 mg Pantoprazole Sodium (Protonix -) 40 mg PO DAILY [facility] Last Admin: 03/02/17 11:32 Dose: 40 mg Zolpidem Tartrate (Ambien -) 5 mg PO DAILY PRN PRN Reason: INSOMNIA - Objective Vital Signs: Vital Signs Temperature 98.6 F 03/02/17 14:33 Pulse Rate 76 03/02/17 14:33 Respiratory Rate 18 03/02/17 14:33 Blood Pressure 112/54 03/02/17 14:33 O2 Sat by Pulse Oximetry (%) 95 03/02/17 11:52 Constitutional: Yes: No Distress, Calm Cardiovascular: Yes: Regular Rate and Rhythm Respiratory: Yes: Regular, Poor Air Entry (rt side), Other (crackles) Gastrointestinal: Yes: Normal Bowel Sounds, Soft Musculoskeletal: Yes: WNL Extremities: Yes: Other (amputation) Neurological: Yes: Alert, Oriented Psychiatric: Yes: Alert, Oriented Labs: CBC, BMP 03/02/17 06:00 03/02/17 06:00 INR, PTT INR 0.99 (0.82-1.09) 02/26/17 12:20 Assessment/Plan Problem List - Problems (1) Pneumonia Code(s): J18.9 - PNEUMONIA, UNSPECIFIED ORGANISM Qualifiers: Pneumonia type: due to unspecified organism Laterality: right Lung location: upper lobe of lung Qualified Code(s): J18.1 - Lobar pneumonia, unspecified organism (2) Phantom limb pain Code(s): G54.6 - PHANTOM LIMB SYNDROME WITH PAIN (3) Hypertension Code(s): I10 - ESSENTIAL (PRIMARY) HYPERTENSION (4) Acute renal failure (ARF) Code(s): N17.9 - ACUTE KIDNEY FAILURE, UNSPECIFIED (5) Hypokalemia Code(s): E87.6 - HYPOKALEMIA (6) Epistaxis Code(s): R04.0 - EPISTAXIS plan can switch to oral abx tomorrow augmentin 500 mg po bid for another 3 days incentive oseas rest as per primary
--- NOTE | 2017-03-02 16:22 | PN ---
Progress Note, Physician Chief Complaint: Ms King is without complaint. No cp, sob, n/v. Asking to go home. - Current Medication List Current Medications: Active Medications Acetaminophen (Tylenol -) 650 mg PO Q6H PRN PRN Reason: FEVER OR PAIN Last Admin: 03/02/17 14:37 Dose: 650 mg Acetaminophen (Tylenol -) 325 mg PO Q8H PRN PRN Reason: PAIN Last Admin: 02/28/17 01:55 Dose: 325 mg Albuterol Sulfate (Ventolin 0.083% Nebulizer Soln -) 1 amp NEB Q6H PRN PRN Reason: SHORT OF BREATH/WHEEZING Last Admin: 02/28/17 22:18 Dose: 1 amp Gabapentin (Neurontin -) 300 mg PO TID [facility] Last Admin: 03/02/17 14:38 Dose: 300 mg Heparin Sodium (Porcine) (Heparin -) 5,000 unit SQ BID [facility] Last Admin: 03/02/17 11:32 Dose: 5,000 unit Piperacillin Sod/Tazobactam Sod (Zosyn 3.375gm Ivpb (Pre-Docked)) 50 mls @ 100 mls/hr IVPB Q8H-IV [facility]IL[facility] PRN Reason: Protocol Last Admin: 03/02/17 11:33 Dose: 100 mls/hr Ibuprofen (Advil -) 200 mg PO Q4H PRN PRN Reason: PAIN Last Admin: 03/02/17 11:33 Dose: 200 mg Oxycodone HCl (Oxycontin -) 10 mg PO HS [facility] Last Admin: 03/01/17 21:27 Dose: 10 mg Oxycodone HCl (Roxicodone -) 5 mg PO Q8H PRN PRN Reason: PAIN Last Admin: 03/02/17 14:36 Dose: 5 mg Pantoprazole Sodium (Protonix -) 40 mg PO DAILY [facility] Last Admin: 03/02/17 11:32 Dose: 40 mg Zolpidem Tartrate (Ambien -) 5 mg PO DAILY PRN PRN Reason: INSOMNIA - Objective Vital Signs: Vital Signs Temperature 98.6 F 03/02/17 14:33 Pulse Rate 76 03/02/17 14:33 Respiratory Rate 18 03/02/17 14:33 Blood Pressure 112/54 03/02/17 14:33 O2 Sat by Pulse Oximetry (%) 95 03/02/17 11:52 Constitutional: Yes: Well Nourished, No Distress, Calm Cardiovascular: Yes: Regular Rate and Rhythm. No: Gallop, Murmur, Rub Respiratory: Yes: Regular, Rhonchi. No: CTA Bilaterally, Rales, Wheezes Gastrointestinal: Yes: Normal Bowel Sounds, Soft. No: Distention, Tenderness Extremities: Yes: WNL Edema: No Labs: CBC, BMP 03/02/17 06:00 03/02/17 06:00 INR, PTT INR 0.99 (0.82-1.09) 02/26/17 12:20 Assessment/Plan (1) Pneumonia Assessment/Plan: -much improved -aspiration -continue zosyn per ID, change to augmentin tomorrow Code(s): J18.9 - PNEUMONIA, UNSPECIFIED ORGANISM Qualifiers: Pneumonia type: due to unspecified organism Laterality: right Lung location: upper lobe of lung Qualified Code(s): J18.1 - Lobar pneumonia, unspecified organism (2) Phantom limb pain Assessment/Plan: -continue hydrocodone and oxycodone -controlled Code(s): G54.6 - PHANTOM LIMB SYNDROME WITH PAIN (3) Hypertension Assessment/Plan: -normotensive -not on antihypertensives currently Code(s): I10 - ESSENTIAL (PRIMARY) HYPERTENSION (4) Acute renal failure (ARF) Assessment/Plan: -resolved -stopped IVF Code(s): N17.9 - ACUTE KIDNEY FAILURE, UNSPECIFIED (5) Hypokalemia Assessment/Plan: -replaced, normal today Code(s): E87.6 - HYPOKALEMIA (6) Epistaxis Assessment/Plan: -resolved Code(s): R04.0 - EPISTAXIS (7) L hip arthritis -controlled Dispo -plan for discharge tomorrow
[2017-03-02] MEDS ORDERED: ZOLPIDEM TARTRATE 5 MG TABLET PO PRN (20:55)
[2017-03-02] MEDS: oxyCODONE HCL 10 MG SUSTAINED ACTING TABLET PO SCH (21:06)
[2017-03-03] MEDS: PIPERACILLIN/TAZOB 3.375 GM 50 ML IVPB SCH ×2 (02:04→10:33)
[2017-03-03] MEDS: GABAPENTIN 300 MG CAPSULE (FP) PO SCH (06:58)
[2017-03-03 09:07] VITALS: BP 149/63; PULSE 70; TEMP 98.6
[2017-03-03] MEDS: PANTOPRAZOLE 40 MG TABLET (FP) PO SCH (10:33)
[2017-03-03] MEDS: HEPARIN NA (PORCINE) 5,000 UNITS/ML 1ML VIAL SQ SCH (10:34)
--- NOTE | 2017-03-03 12:38 | PN ---
Progress Note, Physician History of Present Illness: PULMONARY ALERT,OOB-CHAIR,-SOB,-COUGH - Current Medication List Current Medications: Active Medications Acetaminophen (Tylenol -) 650 mg PO Q6H PRN PRN Reason: FEVER OR PAIN Last Admin: 03/02/17 14:37 Dose: 650 mg Acetaminophen (Tylenol -) 325 mg PO Q8H PRN PRN Reason: PAIN Last Admin: 02/28/17 01:55 Dose: 325 mg Albuterol Sulfate (Ventolin 0.083% Nebulizer Soln -) 1 amp NEB Q6H PRN PRN Reason: SHORT OF BREATH/WHEEZING Last Admin: 02/28/17 22:18 Dose: 1 amp Gabapentin (Neurontin -) 300 mg PO TID [facility] Last Admin: 03/03/17 06:58 Dose: 300 mg Heparin Sodium (Porcine) (Heparin -) 5,000 unit SQ BID [facility] Last Admin: 03/03/17 10:34 Dose: Not Given Piperacillin Sod/Tazobactam Sod (Zosyn 3.375gm Ivpb (Pre-Docked)) 50 mls @ 100 mls/hr IVPB Q8H-IV [facility] PRN Reason: Protocol Last Admin: 03/03/17 10:33 Dose: 100 mls/hr Ibuprofen (Advil -) 200 mg PO Q4H PRN PRN Reason: PAIN Last Admin: 03/02/17 11:33 Dose: 200 mg Oxycodone HCl (Oxycontin -) 10 mg PO HS [facility] Last Admin: 03/02/17 21:06 Dose: 10 mg Oxycodone HCl (Roxicodone -) 5 mg PO Q8H PRN PRN Reason: PAIN Last Admin: 03/02/17 14:36 Dose: 5 mg Pantoprazole Sodium (Protonix -) 40 mg PO DAILY [facility] Last Admin: 03/03/17 10:33 Dose: 40 mg Zolpidem Tartrate (Ambien -) 5 mg PO DAILY PRN PRN Reason: INSOMNIA - Objective Vital Signs: Vital Signs Temperature 98.6 F 03/03/17 09:00 Pulse Rate 70 03/03/17 09:00 Respiratory Rate 18 03/03/17 09:00 Blood Pressure 149/63 03/03/17 09:00 O2 Sat by Pulse Oximetry (%) 97 03/03/17 09:40 Constitutional: Yes: Well Nourished, Calm Eyes: Yes: WNL HENT: Yes: WNL Neck: Yes: WNL Cardiovascular: Yes: Regular Rate and Rhythm, S1, S2 Respiratory: Yes: Rales (CRACKLES ON R) Gastrointestinal: Yes: Normal Bowel Sounds, Soft Extremities: Yes: Amputation (R BKA) Edema: No Labs: CBC, BMP 03/02/17 06:00 03/02/17 06:00 INR, PTT INR 0.99 (0.82-1.09) 02/26/17 12:20 Problem List - Problems (1) Epistaxis Code(s): R04.0 - EPISTAXIS (2) Hypertension Code(s): I10 - ESSENTIAL (PRIMARY) HYPERTENSION (3) Hypokalemia Code(s): E87.6 - HYPOKALEMIA (4) Pneumonia Code(s): J18.9 - PNEUMONIA, UNSPECIFIED ORGANISM Qualifiers: Pneumonia type: due to unspecified organism Laterality: right Lung location: upper lobe of lung Qualified Code(s): J18.1 - Lobar pneumonia, unspecified organism (5) Acute kidney injury Code(s): N17.9 - ACUTE KIDNEY FAILURE, UNSPECIFIED (6) Acute hypoxemic respiratory failure Code(s): J96.01 - ACUTE RESPIRATORY FAILURE WITH HYPOXIA Assessment/Plan IMP ACUTE HYPOXEMIC RESPIRATORY FAILURE IMPROVED R SIDED PNEUMONIA ? EPISTAXIS HTN ACUTE KIDNEY INJURY IMPROVED PLAN PO ANTIBIOTICS INHALED BRONCHODILATORS NASAL O2 MONITOR LYTES F/U CHEST X-RAY OUTPATIENT DR MARTINS Problem List - Problems (1) Epistaxis Code(s): R04.0 - EPISTAXIS (2) Hypertension Code(s): I10 - ESSENTIAL (PRIMARY) HYPERTENSION (3) Hypokalemia Code(s): E87.6 - HYPOKALEMIA (4) Pneumonia Code(s): J18.9 - PNEUMONIA, UNSPECIFIED ORGANISM Qualifiers: Pneumonia type: due to unspecified organism Laterality: right Lung location: upper lobe of lung Qualified Code(s): J18.1 - Lobar pneumonia, unspecified organism (5) Acute kidney injury Code(s): N17.9 - ACUTE KIDNEY FAILURE, UNSPECIFIED (6) Acute hypoxemic respiratory failure Code(s): J96.01 - ACUTE RESPIRATORY FAILURE WITH HYPOXIA
--- NOTE | 2017-03-03 13:40 | DS ---
Physical Examination Vital Signs: Vital Signs Temperature 98.6 F 03/03/17 09:00 Pulse Rate 70 03/03/17 09:00 Respiratory Rate 18 03/03/17 09:00 Blood Pressure 149/63 03/03/17 09:00 O2 Sat by Pulse Oximetry (%) 97 03/03/17 09:40 Constitutional: Yes: Well Nourished, No Distress, Calm Cardiovascular: Yes: Regular Rate and Rhythm. No: Gallop, Murmur, Rub Respiratory: Yes: Regular, Rhonchi. No: Rales, Wheezes Gastrointestinal: Yes: Normal Bowel Sounds, Soft. No: Distention, Tenderness Extremities: Yes: WNL Edema: No Labs: CBC, BMP 03/02/17 06:00 03/02/17 06:00 Discharge Summary Reason For Visit: PNEUMONIA Current Active Problems Acute hypoxemic respiratory failure (Acute) Acute kidney injury (Acute) Acute renal failure (ARF) (Acute) Epistaxis (Acute) Hypertension (Acute) Hypokalemia (Acute) Pneumonia (Acute) Hospital Course: (1) Pneumonia Code(s): J18.9 - PNEUMONIA, UNSPECIFIED ORGANISM Qualifiers: Pneumonia type: due to unspecified organism Laterality: right Lung location: upper lobe of lung Qualified Code(s): J18.1 - Lobar pneumonia, unspecified organism (2) Phantom limb pain Code(s): G54.6 - PHANTOM LIMB SYNDROME WITH PAIN (3) Hypertension Code(s): I10 - ESSENTIAL (PRIMARY) HYPERTENSION (4) Acute renal failure (ARF) Code(s): N17.9 - ACUTE KIDNEY FAILURE, UNSPECIFIED (5) Hypokalemia Code(s): E87.6 - HYPOKALEMIA (6) Epistaxis Code(s): R04.0 - EPISTAXIS (7) L hip arthritis Ms King is a very pleasant 86 year old female who came in with aspiration pneumonia secondary to epistaxis. She was admitted to the hospital and seen by ID. She was placed on zosyn. She had a rapid improvement. She had ARF and this was corrected with IVF. Her potassium was low and it was replaced. She is currently doing well and is without complaint. She is not short of breath and does not require oxygen. She is safe for discharge home. 31 minutes spent in preparation of this discharge Condition: Good - Instructions Diet, Activity, Other Instructions: resume previous diet and activity Referrals: Rowdy Don MD [Primary Care Provider] - Disposition: HOME - Home Medications Comprehensive Discharge Medication List: Ambulatory Orders Gabapentin [Neurontin] 300 mg PO TID PRN 08/23/16 Losartan/Hydrochlorothiazide [Losartan-Hctz 50-12.5 mg Tab] 1 each PO DAILY 05/30 Zolpidem Tartrate [Ambien] 10 mg PO HS 08/23/16 Hydrocodone/Acetaminophen [Vicodin Es 7.5-300 mg Tablet] 1 each PO HS PRN Oxycodone Sr [Oxycontin] 10 mg PO BID PRN 02/26/17 Amoxicillin/Potassium Clav [Augmentin 500-125 Tablet] 1 each PO BID #7 tablet
== END 2017-03-03 14:17 | disposition home or self-care (01) | DRG 871 ==
LOC: JER 11:43 → JERBED 14:00 → J5S 16:33
PROVIDERS: ADMIT Internal Medicine Geriatric Medicine; ATTEND Internal Medicine Geriatric Medicine
DX: A41.9 Sepsis, unspecified organism (principal); J69.0 Pneumonitis due to inhalation of food and vomit; J96.01 Acute respiratory failure with hypoxia; N17.9 Acute kidney failure, unspecified; E87.6 Hypokalemia; Z89.511 Acquired absence of right leg below knee; R04.0 Epistaxis; I10 Essential (primary) hypertension; G54.6 Phantom limb syndrome with pain; M16.12 Unilateral primary osteoarthritis, left hip
CPT/HCPCS: 36415; 36600; 71010-TC; 73523-TC; 80048; 80053; 81003; 81015; 82550; 82553; 82803; 83605; 83735; 84100; 84484; 85025; 85610; 85730; 87040; 87086; 93005; 93010; 94010; 94640; 97116-GP; 97161-GP; 99285-25; J1644